=== PATIENT | male | born 1990 | race Caucasian/White ===

== ENCOUNTER 2016-06-23 12:49 | Emergency (ER) | payer OTHER ==
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
--- NOTE | 2016-06-24 02:34 | ED DISCHARGE INSTRUCTIONS ---
Patient: EDER MENDOZA General Instructions [facility] VisitID: [id number] [place] [address] 25y, M Registration Date/Time: 06/23/2016 Single contusion to the nose.No hematoma or skin abrasion. INSTRUCTIONS Warnings: GENERAL WARNINGS: Return or contact your physician immediately if your condition worsens or changes unexpectedly, if not improving as expected, or if other problems arise. Specifically return if problem worsens. Prescription Medications: Ultram 50 mg tablets: take 1-2 orally every 6 hours as needed for pain. Dispense twenty (20). No refills. Substitution is permissible. Follow-up: Follow up with your doctor in about one week as needed. Call for an appointment. Summary of care provided to patient. Understanding of the discharge instructions verbalized by patient. ADDITIONAL INFORMATION Nasal Contusion You have a contusion (bruising) of the nose. There appears to be no broken bones. A contusion may cause pain, swelling, stuffiness of the nose and sometimes bleeding. Home Care: 1) Apply an ice pack to the nose for 10 minutes every 2 hours during the first 24 hours to reduce pain and swelling. Continue this four times a day for the next two days. 2) You may use acetaminophen (Tylenol) or ibuprofen (Motrin, Advil) to control pain, unless another medicine was prescribed. [ NOTE : If you have chronic liver or kidney disease or ever had a stomach ulcer or GI bleeding, talk with your doctor before using these medicines.] Talk to your doctor if you are taking aspirin or blood thinners (coumadin). These will promote nose bleeding. Your dose may need to be adjusted. 3) Avoid blowing your nose for the first two days. Then, do so gently so you don't cause bleeding. 4) Avoid alcohol and hot liquids for the next two days. Alcohol or hot liquids in your mouth can dilate blood vessels in your nose and cause bleeding. Follow Up with your doctor or as advised by our staff. If your nose appears crooked , when the swelling goes down, contact an ENT doctor (nose specialist) for an appointment within seven days of injury. [NOTE: If X-rays were taken, they will be reviewed by a radiologist. You will be notified of any new findings that may affect your care.] Get Prompt Medical Attention if any of the following occur: Bleeding from the nose that is not controlled by pinching the nostrils together for 15 minutes Increasing facial swelling, pain or redness Fever of 100.4F (38C) Unable to breathe from both sides of the nose after swelling goes down Sinus pain Repeated vomiting Severe or worsening headache or dizziness Unusual drowsiness, or unable to awaken as usual Confusion or change in behavior or speech Convulsion (seizure) Tramadol Hydrochloride Oral tablet What is this medicine? TRAMADOL (TRA ma dole) is a pain reliever. It is used to treat moderate to severe pain in adults. How should I use this medicine? Take this medicine by mouth with a full glass of water. Follow the directions on the prescription label. If the medicine upsets your stomach, take it with food or milk. Do not take more medicine than you are told to take. Talk to your bulk receiver regarding the use of this medicine in children. Special care may be needed. What side effects may I notice from receiving this medicine? Side effects that you should report to your doctor or health animal care supervisor as soon as possible: allergic reactions like skin rash, itching or hives, swelling of the face, lips, or tongue breathing difficulties, wheezing confusion itching light headedness or fainting spells redness, blistering, peeling or loosening of the skin, including inside the mouth seizures Side effects that usually do not require medical attention (report to your doctor or health animal care supervisor if they continue or are bothersome): constipation dizziness drowsiness headache nausea, vomiting What may interact with this medicine? Do not take this medicine with any of the following medications: MAOIs like Carbex, Eldepryl, Marplan, Nardil, and Parnate This medicine may also interact with the following medications: alcohol or medicines that contain alcohol antihistamines benzodiazepines bupropion carbamazepine or oxcarbazepine clozapine cyclobenzaprine digoxin furazolidone linezolid medicines for depression, anxiety, or psychotic disturbances medicines for migraine headache like almotriptan, eletriptan, frovatriptan, naratriptan, rizatriptan, sumatriptan, zolmitriptan medicines for pain like pentazocine, buprenorphine, butorphanol, meperidine, nalbuphine, and propoxyphene medicines for sleep muscle relaxants naltrexone phenobarbital phenothiazines like perphenazine, thioridazine, chlorpromazine, mesoridazine, fluphenazine, prochlorperazine, promazine, and trifluoperazine procarbazine warfarin What if I miss a dose? If you miss a dose, take it as soon as you can. If it is almost time for your next dose, take only that dose. Do not take double or extra doses. Where should I keep my medicine? Keep out of the reach of children. Store at room temperature between 15 and 30 degrees C (59 and 86 degrees F). Keep container tightly closed. Throw away any unused medicine after the expiration date. What should I tell my health care provider before I take this medicine? They need to know if you have any of these conditions: brain tumor depression drug abuse or addiction head injury if you frequently drink alcohol containing drinks kidney disease or trouble passing urine liver disease lung disease, asthma, or breathing problems seizures or epilepsy suicidal thoughts, plans, or attempt; a previous suicide attempt by you or a family member an unusual or allergic reaction to tramadol, codeine, other medicines, foods, dyes, or preservatives or trying to get breast-feeding What should I watch for while using this medicine? Tell your doctor or health animal care supervisor if your pain does not go away, if it gets worse, or if you have new or a different type of pain. You may develop tolerance to the medicine. Tolerance means that you will need a higher dose of the medicine for pain relief. Tolerance is normal and is expected if you take this medicine for a long time. Do not suddenly stop taking your medicine because you may develop a severe reaction. Your body becomes used to the medicine. This does NOT mean you are addicted. Addiction is a behavior related to getting and using a drug for a non-medical reason. If you have pain, you have a medical reason to take pain medicine. Your doctor will tell you how much medicine to take. If your doctor wants you to stop the medicine, the dose will be slowly lowered over time to avoid any side effects. You may get drowsy or dizzy. Do not drive, use machinery, or do anything that needs mental alertness until you know how this medicine affects you. Do not stand or sit up quickly, especially if you are an older patient. This reduces the risk of dizzy or fainting spells. Alcohol can increase or decrease the effects of this medicine. Avoid alcoholic drinks. You may have constipation. Try to have a bowel movement at least every 2 to 3 days. If you do not have a bowel movement for 3 days, call your doctor or health animal care supervisor. Your mouth may get dry. Chewing sugarless gum or sucking hard candy, and drinking plenty of water may help. Contact your doctor if the problem does not go away or is severe. You have been given the following additional information: Nasal Contusion Tramadol Hydrochloride Oral tablet (Electronically signed by Sariah Judd A.R.N.P. 06/23/2016 16:43)
--- NOTE | 2016-06-24 02:34 | ED MED RECONCILIATION SUMMARY ---
Patient: EDER MENDOZA Medication Reconciliation Report [facility] VisitID: [id number] [address] [place] [address] 25y, M Registration Date/Time: 06/23/2016 Weight: 70.3 kg Height/Length: 68 in. BMI: 23.6 ALLERGIES: Penicillins The patient's Home Medications are listed below: THE FOLLOWING MEDICATIONS NEED TO BE RECONCILED: Tylenol 650 earlier today The source(s) of the original Home Medication information: Not obtained. The following Medications were given to the patient in the Emergency Department: None. The following Medications were prescribed to the patient: Ultram 50 mg tablets: take 1-2 orally every 6 hours as needed for pain. Dispense twenty (20). No refills. Substitution is permissible. -- Sariah Judd A.R.N.P.
--- NOTE | 2016-06-24 02:34 | ED DISCHARGE INSTRUCTIONS ---
Patient: EDER MENDOZA General Instructions [facility] VisitID: [id number] [place] [address] 25y, M Registration Date/Time: 06/23/2016 Single contusion to the nose.No hematoma or skin abrasion. INSTRUCTIONS Warnings: GENERAL WARNINGS: Return or contact your physician immediately if your condition worsens or changes unexpectedly, if not improving as expected, or if other problems arise. Specifically return if problem worsens. Prescription Medications: Ultram 50 mg tablets: take 1-2 orally every 6 hours as needed for pain. Dispense twenty (20). No refills. Substitution is permissible. Follow-up: Follow up with your doctor in about one week as needed. Call for an appointment. Summary of care provided to patient. Understanding of the discharge instructions verbalized by patient. ADDITIONAL INFORMATION Nasal Contusion You have a contusion (bruising) of the nose. There appears to be no broken bones. A contusion may cause pain, swelling, stuffiness of the nose and sometimes bleeding. Home Care: 1) Apply an ice pack to the nose for 10 minutes every 2 hours during the first 24 hours to reduce pain and swelling. Continue this four times a day for the next two days. 2) You may use acetaminophen (Tylenol) or ibuprofen (Motrin, Advil) to control pain, unless another medicine was prescribed. [ NOTE : If you have chronic liver or kidney disease or ever had a stomach ulcer or GI bleeding, talk with your doctor before using these medicines.] Talk to your doctor if you are taking aspirin or blood thinners (coumadin). These will promote nose bleeding. Your dose may need to be adjusted. 3) Avoid blowing your nose for the first two days. Then, do so gently so you don't cause bleeding. 4) Avoid alcohol and hot liquids for the next two days. Alcohol or hot liquids in your mouth can dilate blood vessels in your nose and cause bleeding. Follow Up with your doctor or as advised by our staff. If your nose appears crooked , when the swelling goes down, contact an ENT doctor (nose specialist) for an appointment within seven days of injury. [NOTE: If X-rays were taken, they will be reviewed by a radiologist. You will be notified of any new findings that may affect your care.] Get Prompt Medical Attention if any of the following occur: Bleeding from the nose that is not controlled by pinching the nostrils together for 15 minutes Increasing facial swelling, pain or redness Fever of 100.4F (38C) Unable to breathe from both sides of the nose after swelling goes down Sinus pain Repeated vomiting Severe or worsening headache or dizziness Unusual drowsiness, or unable to awaken as usual Confusion or change in behavior or speech Convulsion (seizure) Tramadol Hydrochloride Oral tablet What is this medicine? TRAMADOL (TRA ma dole) is a pain reliever. It is used to treat moderate to severe pain in adults. How should I use this medicine? Take this medicine by mouth with a full glass of water. Follow the directions on the prescription label. If the medicine upsets your stomach, take it with food or milk. Do not take more medicine than you are told to take. Talk to your competitive athlete regarding the use of this medicine in children. Special care may be needed. What side effects may I notice from receiving this medicine? Side effects that you should report to your doctor or health personal care service provider as soon as possible: allergic reactions like skin rash, itching or hives, swelling of the face, lips, or tongue breathing difficulties, wheezing confusion itching light headedness or fainting spells redness, blistering, peeling or loosening of the skin, including inside the mouth seizures Side effects that usually do not require medical attention (report to your doctor or health personal care service provider if they continue or are bothersome): constipation dizziness drowsiness headache nausea, vomiting What may interact with this medicine? Do not take this medicine with any of the following medications: MAOIs like Carbex, Eldepryl, Marplan, Nardil, and Parnate This medicine may also interact with the following medications: alcohol or medicines that contain alcohol antihistamines benzodiazepines bupropion carbamazepine or oxcarbazepine clozapine cyclobenzaprine digoxin furazolidone linezolid medicines for depression, anxiety, or psychotic disturbances medicines for migraine headache like almotriptan, eletriptan, frovatriptan, naratriptan, rizatriptan, sumatriptan, zolmitriptan medicines for pain like pentazocine, buprenorphine, butorphanol, meperidine, nalbuphine, and propoxyphene medicines for sleep muscle relaxants naltrexone phenobarbital phenothiazines like perphenazine, thioridazine, chlorpromazine, mesoridazine, fluphenazine, prochlorperazine, promazine, and trifluoperazine procarbazine warfarin What if I miss a dose? If you miss a dose, take it as soon as you can. If it is almost time for your next dose, take only that dose. Do not take double or extra doses. Where should I keep my medicine? Keep out of the reach of children. Store at room temperature between 15 and 30 degrees C (59 and 86 degrees F). Keep container tightly closed. Throw away any unused medicine after the expiration date. What should I tell my health care provider before I take this medicine? They need to know if you have any of these conditions: brain tumor depression drug abuse or addiction head injury if you frequently drink alcohol containing drinks kidney disease or trouble passing urine liver disease lung disease, asthma, or breathing problems seizures or epilepsy suicidal thoughts, plans, or attempt; a previous suicide attempt by you or a family member an unusual or allergic reaction to tramadol, codeine, other medicines, foods, dyes, or preservatives or trying to get breast-feeding What should I watch for while using this medicine? Tell your doctor or health personal care service provider if your pain does not go away, if it gets worse, or if you have new or a different type of pain. You may develop tolerance to the medicine. Tolerance means that you will need a higher dose of the medicine for pain relief. Tolerance is normal and is expected if you take this medicine for a long time. Do not suddenly stop taking your medicine because you may develop a severe reaction. Your body becomes used to the medicine. This does NOT mean you are addicted. Addiction is a behavior related to getting and using a drug for a non-medical reason. If you have pain, you have a medical reason to take pain medicine. Your doctor will tell you how much medicine to take. If your doctor wants you to stop the medicine, the dose will be slowly lowered over time to avoid any side effects. You may get drowsy or dizzy. Do not drive, use machinery, or do anything that needs mental alertness until you know how this medicine affects you. Do not stand or sit up quickly, especially if you are an older patient. This reduces the risk of dizzy or fainting spells. Alcohol can increase or decrease the effects of this medicine. Avoid alcoholic drinks. You may have constipation. Try to have a bowel movement at least every 2 to 3 days. If you do not have a bowel movement for 3 days, call your doctor or health personal care service provider. Your mouth may get dry. Chewing sugarless gum or sucking hard candy, and drinking plenty of water may help. Contact your doctor if the problem does not go away or is severe. You have been given the following additional information: Nasal Contusion Tramadol Hydrochloride Oral tablet (Electronically signed by Sariah Judd A.R.N.P. 06/23/2016 16:43)
--- NOTE | 2016-06-24 02:34 | ED MED RECONCILIATION SUMMARY ---
Patient: EDER MENDOZA Medication Reconciliation Report [facility] VisitID: [id number] [address] [place] [address] 25y, M Registration Date/Time: 06/23/2016 Weight: 70.3 kg Height/Length: 68 in. BMI: 23.6 ALLERGIES: Penicillins The patient's Home Medications are listed below: THE FOLLOWING MEDICATIONS NEED TO BE RECONCILED: Tylenol 650 earlier today The source(s) of the original Home Medication information: Not obtained. The following Medications were given to the patient in the Emergency Department: None. The following Medications were prescribed to the patient: Ultram 50 mg tablets: take 1-2 orally every 6 hours as needed for pain. Dispense twenty (20). No refills. Substitution is permissible. -- Sariah Judd A.R.N.P.
--- NOTE | 2016-06-24 02:34 | ED MAR SUMMARY ---
..... Medication Administration Record [facility] [address] [place], [place] [id number] Patient: EDER MENDOZA Visit ID: [id number] 25y, M Weight: 70.3 kg Height/Length: 68 in BMI: 23.6 ALLERGIES: Penicillins
--- NOTE | 2016-06-24 02:34 | ED MAR SUMMARY ---
..... Medication Administration Record [facility] [address] [place], [place] [id number] Patient: EDER MENDOZA Visit ID: [id number] 25y, M Weight: 70.3 kg Height/Length: 68 in BMI: 23.6 ALLERGIES: Penicillins
== END 2016-06-23 13:45 | disposition home or self-care (01) ==
LOC: ED SRH 12:49
DX: S00.33XA Contusion of nose, initial encounter (principal); Y04.0XXA Assault by unarmed brawl or fight, initial encounter; Y93.89 Activity, other specified; Y92.481 Parking lot as the place of occurrence of the external cause; Y99.9 Unspecified external cause status; F17.200 Nicotine dependence, unspecified, uncomplicated

== ENCOUNTER 2016-08-21 03:02 | Emergency (ER) | payer OTHER ==
--- NOTE | 2016-08-21 03:55 | ED CLINICAL REPORT ---
Clinical Report - Physicians/Mid Levels [facility] [address] [place] [address] 08/21/2016 3:02 Patient: EDER MENDOZA Time Seen: 03:08 Aug 21 2016. Historian- patient and police. CPT: ER phys charges level 4 plus (#543372). 2.6-7.5 cm simple scalp, neck,A (#[id number]). HISTORY OF PRESENT ILLNESS Location of injuries- left 4th finger and left thigh. Chief Complaint: DOG BITE. The injury occurred just prior to arrival. The animal reportedly appeared well. Occurred on a street. (police dog sent in after patient.). No skin rash, dizziness, fainting episodes or difficulty breathing. He has not had swelling or drainage. REVIEW OF SYSTEMS No swelling, numbness, difficulty breathing, weakness or tingling. No fever, joint pain or enlarged lymph nodes. He has had chest pain. All systems otherwise negative, except as recorded above. PAST HISTORY Substance Abuse. Asthma. --03:08 Tatiana Agudelo. ADDITIONAL SURGERIES: Rt leg. Medications: None. Allergies: Penicillin. SOCIAL HISTORY Heavy tobacco smoker (cigarette)- less than 1 pack per day. History of heavy drug use: heroin, methamphetamines, marijuana. No alcohol use. ADDITIONAL NOTES The nursing notes have been reviewed. PHYSICAL EXAM Vital Signs: 08/21/2016 03:11 BP: 127/87. HR: 110. RR: 20. O2 saturation: 100%. Temp: 97.6 F. Pain level now: 8/10. Appearance: Alert. Patient in mild distress. Head: Head normal on inspection and non-tender. Eyes: Eyes normal inspection. ENT: Nose normal on inspection. Mouth normal on inspection. Neck: Normal inspection. Neck non-tender. Painless ROM. CVS: Heart sounds normal. Pulses normal. Respiratory: Chest normal on inspection. Breath sounds normal. (mild left sided chest wall tenderness to,palpation.). Abdomen: Normal inspection. Soft and nontender. Back: Normal inspection. No tenderness. Skin: Skin warm. Extremities: Left ring finger: mild tenderness and swelling and multiple puncture wounds of the dorsal and volar aspect. Neurovascular intact distally. (2 punctures. No tendon or joint injury.). No limitation in movement. No subungual hematoma or amputation present. Left thigh: deep laceration located in the mid and lower thigh. SEE LACERATION PROCEDURE NOTE. Neurovascular intact distally. (2 lacerations from dog bite.). Neuro: Oriented X 3. No motor deficit. No sensory deficit. Reflexes normal. PROGRESS AND PROCEDURES Laceration Repair: Location: left thigh. Length: 3 cm. Complexity: simple (local anesthesia used and sutured). Wound depth/shape- subcutaneous and linear. Wound is clean. Contused tissue present. Distal neuro/vascular/tendon status normal. Local anesthesia provided using 2% lidocaine with epi. Prepped with Betadine and Hibiclens. Wound explored, cleansed, irrigated and examined to the base in bloodless field extensively with normal saline. Closure of skin: interrupted 4-0 (3 sutures). Post-procedure: he is stable and there are no complications. Bleeding is controlled and neuro-vascular status is intact distal to the wound. Dressing applied. Tetanus immunization given. Estimated blood loss: 2 mL. Laceration Repair #2: Location: left thigh. Length: 3 cm. Complexity: simple (local anesthesia used and sutured). Wound depth/shape- subcutaneous and linear. Wound is clean. Distal neuro/vascular/tendon status normal. Local anesthesia provided using 2% lidocaine with epi. Prepped with Betadine and Hibiclens. Wound explored, cleansed, irrigated and examined to the base in bloodless field extensively. Closure of skin: interrupted 4-0 (3 sutures). Post-procedure: he is stable and there are no complications. Bleeding is controlled and neuro-vascular status is intact distal to the wound. Dressing applied. Tetanus immunization given. Estimated blood loss: 2 mL. Course of Care: Bactrim 2 po Tdap IM Patient is stable. Symptoms better. Patient/family counseled. Disposition: Discharged. Condition: stable and improved. CLINICAL IMPRESSION Deep dog bite to the left ring finger and left thigh. No bite with injury to the left fingernails. Multiple superficial abrasions to the right forearm and right lower leg and left forearm and left lower leg. INSTRUCTIONS Protect wound and keep wound area clean. Change dressing twice daily. Keep wounds dry. You may wash wounds briefly, then dry. Apply neosporin twice daily. Sutures should be removed in ten days. You may walk and bear weight as tolerated. (You are medically cleared to book into [facility] Warnings: TETANUS: You were given a tetanus shot during your visit. Make a note for future reference. GENERAL WARNINGS: Return or contact your physician immediately if your condition worsens or changes unexpectedly, if not improving as expected, or if other problems arise. Prescription Medications: Bactrim DS 800 mg / 160 mg: Take 1 tablet orally every 12 hours for 7 days. Dispense fourteen (14). No refills. Substitution is permissible. OTC Medications: Acetaminophen (available over the counter): take according to label instructions. Follow-up: Follow up with your doctor in ten days. Call for an appointment. Understanding of the discharge instructions verbalized by patient. (Electronically signed by Titi Lennon MD 08/22/2016 0:15)
--- NOTE | 2016-08-21 03:55 | ED CLINICAL REPORT ---
Clinical Report - Physicians/Mid Levels [facility] [address] [place] [address] 08/21/2016 3:02 Patient: EDER MENDOZA Time Seen: 03:08 Aug 21 2016. Historian- patient and police. CPT: ER phys charges level 4 plus (#[id number]). 2.6-7.5 cm simple scalp, neck,A (#[id number]). HISTORY OF PRESENT ILLNESS Location of injuries- left 4th finger and left thigh. Chief Complaint: DOG BITE. The injury occurred just prior to arrival. The animal reportedly appeared well. Occurred on a street. (police dog sent in after patient.). No skin rash, dizziness, fainting episodes or difficulty breathing. He has not had swelling or drainage. REVIEW OF SYSTEMS No swelling, numbness, difficulty breathing, weakness or tingling. No fever, joint pain or enlarged lymph nodes. He has had chest pain. All systems otherwise negative, except as recorded above. PAST HISTORY Substance Abuse. Asthma. --03:08 Tatiana Agudelo. ADDITIONAL SURGERIES: Rt leg. Medications: None. Allergies: Penicillin. SOCIAL HISTORY Heavy tobacco smoker (cigarette)- less than 1 pack per day. History of heavy drug use: heroin, methamphetamines, marijuana. No alcohol use. ADDITIONAL NOTES The nursing notes have been reviewed. PHYSICAL EXAM Vital Signs: 08/21/2016 03:11 BP: 127/87. HR: 110. RR: 20. O2 saturation: 100%. Temp: 97.6 F. Pain level now: 8/10. Appearance: Alert. Patient in mild distress. Head: Head normal on inspection and non-tender. Eyes: Eyes normal inspection. ENT: Nose normal on inspection. Mouth normal on inspection. Neck: Normal inspection. Neck non-tender. Painless ROM. CVS: Heart sounds normal. Pulses normal. Respiratory: Chest normal on inspection. Breath sounds normal. (mild left sided chest wall tenderness to,palpation.). Abdomen: Normal inspection. Soft and nontender. Back: Normal inspection. No tenderness. Skin: Skin warm. Extremities: Left ring finger: mild tenderness and swelling and multiple puncture wounds of the dorsal and volar aspect. Neurovascular intact distally. (2 punctures. No tendon or joint injury.). No limitation in movement. No subungual hematoma or amputation present. Left thigh: deep laceration located in the mid and lower thigh. SEE LACERATION PROCEDURE NOTE. Neurovascular intact distally. (2 lacerations from dog bite.). Neuro: Oriented X 3. No motor deficit. No sensory deficit. Reflexes normal. PROGRESS AND PROCEDURES Laceration Repair: Location: left thigh. Length: 3 cm. Complexity: simple (local anesthesia used and sutured). Wound depth/shape- subcutaneous and linear. Wound is clean. Contused tissue present. Distal neuro/vascular/tendon status normal. Local anesthesia provided using 2% lidocaine with epi. Prepped with Betadine and Hibiclens. Wound explored, cleansed, irrigated and examined to the base in bloodless field extensively with normal saline. Closure of skin: interrupted 4-0 (3 sutures). Post-procedure: he is stable and there are no complications. Bleeding is controlled and neuro-vascular status is intact distal to the wound. Dressing applied. Tetanus immunization given. Estimated blood loss: 2 mL. Laceration Repair #2: Location: left thigh. Length: 3 cm. Complexity: simple (local anesthesia used and sutured). Wound depth/shape- subcutaneous and linear. Wound is clean. Distal neuro/vascular/tendon status normal. Local anesthesia provided using 2% lidocaine with epi. Prepped with Betadine and Hibiclens. Wound explored, cleansed, irrigated and examined to the base in bloodless field extensively. Closure of skin: interrupted 4-0 (3 sutures). Post-procedure: he is stable and there are no complications. Bleeding is controlled and neuro-vascular status is intact distal to the wound. Dressing applied. Tetanus immunization given. Estimated blood loss: 2 mL. Course of Care: Bactrim 2 po Tdap IM Patient is stable. Symptoms better. Patient/family counseled. Disposition: Discharged. Condition: stable and improved. CLINICAL IMPRESSION Deep dog bite to the left ring finger and left thigh. No bite with injury to the left fingernails. Multiple superficial abrasions to the right forearm and right lower leg and left forearm and left lower leg. INSTRUCTIONS Protect wound and keep wound area clean. Change dressing twice daily. Keep wounds dry. You may wash wounds briefly, then dry. Apply neosporin twice daily. Sutures should be removed in ten days. You may walk and bear weight as tolerated. (You are medically cleared to book into senior living[facility] Warnings: TETANUS: You were given a tetanus shot during your visit. Make a note for future reference. GENERAL WARNINGS: Return or contact your physician immediately if your condition worsens or changes unexpectedly, if not improving as expected, or if other problems arise. Prescription Medications: Bactrim DS 800 mg / 160 mg: Take 1 tablet orally every 12 hours for 7 days. Dispense fourteen (14). No refills. Substitution is permissible. OTC Medications: Acetaminophen (available over the counter): take according to label instructions. Follow-up: Follow up with your doctor in ten days. Call for an appointment. Understanding of the discharge instructions verbalized by patient. (Electronically signed by Titi Lennon MD 08/22/2016 0:15)
--- NOTE | 2016-08-21 03:55 | ED NURSING NOTES ---
Clinical Report - Nurses [facility] [address] [place] [address] 08/21/2016 3:02 [id number] TRI[facility] Triage time 03:Aug 21 2016. Acuity: LEVEL 3. Chief Complaint: DOG BITE. SEPSIS SCREEN: Sepsis Screen: negative. Negative (no infection suspected/documented). KATHERINE COMA SCORE: [place] Coma Scale: 15- eyes open spontaneously (4); best verbal response- oriented x 4 (5); best motor response- obeys commands (6). --03:11 Tatiana Agudelo 03:11 08/21/16. BP: 127/87. HR: 110. RR: 20. O2 saturation: 100%. Temp: 97.6 F (oral). Pain level now: 11/25. --03:14 Tatiana Agudelo. Weight: 70.3 kg stated. Height/Length: 68 inches Per Patient. BMI: 23.6. --03:08 Tatiana Agudelo. Medications None. --03:07 Tatiana Agudelo. Medication/allergy information source: the patient. --03:11 Tatiana Agudelo. Allergies Penicillin. --03:07 Tatiana Agudelo. History Arrived by EMS, and in police custody. Historian: police and patient. Unaccompanied. Location of injuries: left leg. Occurred on a street. (Evading police, Police canine unit dispatched). ( Patient was evading police arrest when a canine unit was dispatched. Patient was bit on his left medial calf and left hand.). SOCIAL HX: Light tobacco smoker (cigarette)- less than 1/2 a pack per day. History of drug use: heroin, methamphetamines, marijuana. Recently used drugs just prior to arrival. No alcohol use. No infectious disease exposure. ABUSE ASSESSMENT: No report of abuse. FALL RISK ASSESSMENT: Fall risk assessment completed. No fall risk identified. NUTRITIONAL RISK ASSESSMENT: The nutritional risk assessment revealed no deficiencies. FUNCTIONAL ASSESSMENT: Functional assessment: no impairments noted. LEARNING NEEDS ASSESSMENT: The learning needs assessment revealed no barriers. SKIN INTEGRITY ASSESSMENT: Skin integrity risk assessment completed. No skin integrity risk identified. --03:11 Tatiana Agudelo. PROBLEMS: Substance Abuse. Asthma. --03:08 Tatiana Agudelo. ADDITIONAL SURGERIES: Rt leg. --03:08 Tatiana Agudelo. Interventions ID band on patient. To treatment room. --03:11 Tatiana Agudelo. PHYSICAL ASSESSMENT 03:16 08/21/16. To room via stretcher. GENERAL / NEURO / PSYCH: Alert. Oriented X 4. Appears in pain. RESPIRATORY: Respirations not labored. CVS: Normal heart rate and rhythm. EXTREMITIES: Left leg: deep 4.0 cm laceration with controlled bleeding and multiple puncture wounds of the medial aspect of mid leg. SKIN: Skin is cool. ( abrasions generalized over the arms and legs). --03:16 Tatiana Agudelo. NURSING PROGRESS NOTES Monitoring of patient in place. Patient gowned. Warming measures: blanket applied. Reassurance given to the patient. Two patient identifiers checked. Call light placed in reach. Side rails up x 1. Bed placed in lowest position. Brakes of bed on. Patient ready for evaluation- chart flagged and ED physician notified. --03:17 Tatiana Agudelo Wound irrigated with 1000 mL using a syringe; patient tolerated procedure well. --03:17 Tatiana Agudelo 03:24 08/21/2016 TDAP IM 0.5 mL given. (Lot#: [id number], expiration date: 01/23/2018, Freelance Makeup Artist: sanofi pasteur). Given in the right deltoid. Allergies verified and confirmed 5 rights. Vaccine information statement provided to the patient. --03:24 Tatiana Agudelo 03:24 08/21/2016 Bactrim DS (Sulfamethoxazole-TMP DS) PO Tablets 2 tab given. Allergies verified and confirmed 5 rights. --03:24 Tatiana Agudelo 03:48 Breathalyzer 0.00. --03:48 McQuoid, Angelina, ER Tech1 Applied clean dressing consisting of Tegaderm and 4x4 gauze. --04:01 Tatiana Agudelo. DISPOSITION / DISCHARGE 04:01 08/21/16. Condition at departure: improved and stable. The goals identified in the patient's plan of care were met. No learning barriers present. Discharge instructions provided and reviewed with the patient (Police). Reviewed medication(s) side effects, precautions, dosing and course information (RX given to police). Reviewed wound care instructions. Patient verbalized understanding. Written instructions provided in [place]. Verbalized understanding (Police). ( Have wound evaluated in 10-14 days for suture removal. Seek medical treatment sooner if you see signs of infection. Keep wound clean and dry.). The patient was discharged by the physician. He was discharged to police department facility and accompanied by a police escort. He left the Emergency Department ambulatory and via police department vehicle. FALL RISK ASSESSMENT: Fall risk assessment completed. No fall risk identified. --04:01 Tatiana Agudelo 03:59 08/21/16. BP: deferred. HR: deferred. RR: deferred. O2 saturation: deferred. Temp: deferred. Pain level now deferred. --04:01 Tatiana Agudelo. Locked/Released at 08/21/2016 4:02 by Tatiana Agudelo,
--- NOTE | 2016-08-21 03:55 | ED ORDER SUMMARY ---
..... Patient: EDER MENDOZA OrderSheet [facility] VisitID: [id number] [address] [place] [address] 25y, M Registration Date/Time: 08/21/2016 ORDER SHEET Weight: 70.3 kg (stated) Allergies: Penicillin GENERAL ORDERS: Breathalyzer (03:23 08/21/2016 Brittani CORDERO) (Ack 3:26 HSoule) MEDICATION ORDERS: Tdap IM 0.5 mL (per protocol) (03:15 08/21/2016 Brittani CORDERO) (Ack 3:17 HSoule) (3:24 HSoule) Bactrim DS PO (Tablet 800-160 mg) 2 tabs (NOW) (03:16 08/21/2016 Brittani CORDERO) (Ack 3:17 HSoule) (3:24 HSoule) IV FLUIDS: ORDER SHEET NOTES: [Electronically signed by Tatiana Agudelo (04:02 08/21/2016)] [Electronically signed by Titi Lennon MD (00:15 08/22/2016)] [Electronically locked/signed by Tatiana Agudelo (04:02 08/21/2016)]
--- NOTE | 2016-08-21 03:55 | ED ORDER SUMMARY ---
..... Patient: EDER MENDOZA OrderSheet [facility] VisitID: [id number] [address] [place] [address] 25y, M Registration Date/Time: 08/21/2016 ORDER SHEET Weight: 70.3 kg (stated) Allergies: Penicillin GENERAL ORDERS: Breathalyzer (03:23 08/21/2016 Brittani CORDERO) (Ack 3:26 HSoule) MEDICATION ORDERS: Tdap IM 0.5 mL (per protocol) (03:15 08/21/2016 Brittani CORDERO) (Ack 3:17 HSoule) (3:24 HSoule) Bactrim DS PO (Tablet 800-160 mg) 2 tabs (NOW) (03:16 08/21/2016 Brittani CORDERO) (Ack 3:17 HSoule) (3:24 HSoule) IV FLUIDS: ORDER SHEET NOTES: [Electronically signed by Tatiana Agudelo (04:02 08/21/2016)] [Electronically signed by Titi Lennon MD (00:15 08/22/2016)] [Electronically locked/signed by Tatiana Agudelo (04:02 08/21/2016)]
--- NOTE | 2016-08-22 00:15 | ED DISCHARGE INSTRUCTIONS ---
Patient: EDER MENDOZA General Instructions [facility] VisitID: [id number] [place] [address] 25y, M Registration Date/Time: 08/21/2016 Deep dog bite to the left ring finger and left thigh. No bite with injury to the left fingernails. Multiple superficial abrasions to the right forearm and right lower leg and left forearm and left lower leg. INSTRUCTIONS Protect wound and keep wound area clean. Change dressing twice daily. Keep wounds dry. You may wash wounds briefly, then dry. Apply neosporin twice daily. Sutures should be removed in ten days. You may walk and bear weight as tolerated. (You are medically cleared to book into detention.). Warnings: TETANUS: You were given a tetanus shot during your visit. Make a note for future reference. GENERAL WARNINGS: Return or contact your physician immediately if your condition worsens or changes unexpectedly, if not improving as expected, or if other problems arise. Prescription Medications: Bactrim DS 800 mg / 160 mg: Take 1 tablet orally every 12 hours for 7 days. Dispense fourteen (14). No refills. Substitution is permissible. OTC Medications: Acetaminophen (available over the counter): take according to label instructions. Follow-up: Follow up with your doctor in ten days. Call for an appointment. Understanding of the discharge instructions verbalized by patient. ADDITIONAL INFORMATION Dog Bite If a dog has bitten you and the wound is deep enough to break the skin, an infection may occur. Therefore, you should watch for the warning signs listed below. The doctor may not close the wound completely. This is to allow fluid to drain in the event of an infection. Home Care Watch the wound for signs of infection listed below. In certain types of bites, antibiotics may be prescribed. Begin taking these as soon as possible, as directed until they are all gone. Rabies Prevention If you live in an area where rabies occurs in wild animals, the rabies virus can be passed to cats and dogs. An infected animal can pass the rabies virus to you during a bite. If ahealthy-looking pet dog has bitten you, it should be kept in a secure area for the next 10 days to watch for signs of illness. If the pet microbiology professor wont cooperate with you, contact the [facility] animal control department (or local law enforcement). If the animal becomes ill or dies [id number] days, contact your animal control department at once. The animal must be tested for rabies. If the animal stays healthy for the next 10 days, then there is no danger of rabies in the dog or you. Pets fully vaccinated against rabies (2 shots) are at very low risk for the infection. However, because human rabies is almost always fatal, any biting dog should be kept in confinement for 10 days as an extra precaution. If a stray dog bit you, contact the animal control department. They can provide information on capture, quarantine, and animal rabies testing. If you are unable to locate the animal that bit you in the next 2days, and if rabies exists in your region, you must be evaluated for the rabies vaccine series. Contact your doctor or return here promptly. All animal bites should be reported to the [facility] animal control department. If you were not given a form to fill out, you can report it yourself by calling. Follow Up with your doctor as advised. Most skin wounds heal within 10 days. However, an infection may occur even with proper treatment. Check your woundevery 6 hoursfor 2 days, then at least once a day for the next two days for the signs of infection listed below. Get Prompt Medical Attention if any of the following occur: Signs of infection: Spreading redness Increased pain or swelling Fever of 100.4F (38C) or higher, or as directed by your healthcare provider Colored fluid or pus draining from the wound Headache, confusion, strange behavior, or a seizure (signs of a rabies infection) Abrasions Abrasions are skin scrapes. Their treatment depends on how large and deep the abrasion is. Home Care: If you were given a bandage, change it once a day. If your bandage sticks to the wound, soak it in warm water until it loosens. Wash the area with soap and water to remove all the cream/ointment. You may do this in a sink, under a tub faucet or shower. Rinse off the soap and pat dry with a clean towel. Reapply cream/ointment according to your doctor's instructions. This will prevent infection and help prevent the bandage from sticking. Cover the wound with a fresh non-stick bandage (Telfa). Repeat steps 1 to 4 daily, or as directed by your doctor. If the bandage becomes wet or dirty, change it as soon as possible. You may use acetaminophen (Tylenol) or ibuprofen (Motrin, Advil) to control pain, unless another pain medicine was prescribed. [ NOTE : If you have chronic liver or kidney disease or ever had a stomach ulcer or GI bleeding, talk with your doctor before using these medicines.] Do not use ibuprofen in children under six months of age. Follow Up with your physician or this facility as directed by our staff. Most skin wounds heal within ten days. However, an infection may occur despite proper treatment. Therefore, look for the early signs of infection listed below. Get Prompt Medical Attention if any of the following occur: Increasing pain in the wound Increasing redness or swelling Pus coming from the wound Fever of 100.4F (38C) or higher, or as directed by your healthcare provider Laceration, Extremity (Sutures, [place], Or Tape) A laceration is a cut through the skin. This will usually require stitches (sutures) or amos if it is deep. Minor cuts may be treated with surgical tape closures. Home care The following guidelines will help you care for your laceration at home: Keep the wound clean and dry. If a bandage was applied and it becomes wet or dirty, replace it. Otherwise, leave it in place for the first 24 hours, then change it once a day or as directed. If stitches or amos were used, clean the wound daily: After removing the bandage, wash the area with soap and water. Use a wet cotton swab to loosen and remove any blood or crust that forms. After cleaning, keep the wound clean and dry. Talk with your doctor before applying any antibiotic ointment to the wound. Reapply the bandage. You may remove the bandage to shower as usual after the first 24 hours, but do not soak the area in water (no swimming) until the stitches or amos are removed. If surgical tape closures were used, keep the area clean and dry. If it becomes wet, blot it dry with a towel. The doctor may prescribe an antibiotic cream or ointment to prevent infection. Do not stop taking this medication until you have finished the prescribed course or the doctor tells you to stop. The doctor may also prescribe medications for pain. Follow the doctors instructions for taking these medications. If you have chronic liver or kidney disease or ever had a stomach ulcer or GI bleeding, talk with your doctor before using these medicines. Follow-up care Follow up with your health care provider. Most skin wounds heal within ten days. However, an infection may sometimes occur despite proper treatment. Therefore, check the wound daily for the signs of infection listed below. Stitches and amos should be removed within 714 days. If surgical tape closures were used, you may remove them after 10 days, if they have not fallen off by then. Notify your doctor if you notice persistent numbness or weakness in the injured extremity. (Note:A radiologist will review any X-rays that were taken. We will notify you of any new findings that may affect your care.) When to seek medical care Get prompt medical attention if any of these occur: Increasing pain in the wound Redness, swelling, or pus coming from the wound Fever of 100.4F (38C) or higher, or as directed by your health care provider If stitches or amos come apart or fall out before your next appointment If the surgical tape closures fall off within seven days, or the wound edges re-open Bleeding not controlled by direct pressure You have been given the following additional information: Dog Bite Abrasion Laceration, Extrem (Suture, Staple, Or Tape) You may walk and bear weight as tolerated. (Electronically signed by Titi Lennon MD 08/22/2016 0:15)
--- NOTE | 2016-08-22 00:16 | ED MAR SUMMARY ---
..... Medication Administration Record [facility] [address] [place] [address] Patient: EDER MENDOZA Visit ID: [id number] 25y, M Weight: 70.3 kg Height/Length: 68 in BMI: 23.6 ALLERGIES: Penicillin Given 03:08/21/2016 Tatiana Agudelo, Medication Administered: TDAP [IM], Dose: 0.5 mL IM. Medication Ordered: Tdap IM 0.5 mL (per protocol). Given 03:08/21/2016 Tatiana Agudelo, Medication Administered: BACTRIM DS [PO] (SULFAMETHOXAZOLE-TMP DS), Dose: 2 tab Tablets PO. Medication Ordered: Bactrim DS PO (Tablet 800-160 mg) 2 tabs (NOW).
--- NOTE | 2016-08-22 00:16 | ED MED RECONCILIATION SUMMARY ---
Patient: EDER MENDOZA Medication Reconciliation Report [facility] VisitID: [id number] [address] [place] [address] 25y, M Registration Date/Time: 08/21/2016 Weight: 70.3 kg Height/Length: 68 in. BMI: 23.6 ALLERGIES: Penicillin The patient's Home Medications are listed below: NONE. The source(s) of the original Home Medication information: patient The following Medications were given to the patient in the Emergency Department: TDAP [IM] IM 0.5 mL, administered: 08/21/2016 3:24:00 AM Bactrim DS [PO] PO 2 tab, administered: 08/21/2016 3:24:00 AM The following Medications were prescribed to the patient: Acetaminophen (available over the counter): take according to label instructions. -- Titi Lennon MD Bactrim DS 800 mg / 160 mg: Take 1 tablet orally every 12 hours for 7 days. Dispense fourteen (14). No refills. Substitution is permissible. -- Titi Lennon MD
--- NOTE | 2016-08-22 00:16 | ED MAR SUMMARY ---
..... Medication Administration Record [facility] [address] [place] [address] Patient: EDER MENDOZA Visit ID: [id number] 25y, M Weight: 70.3 kg Height/Length: 68 in BMI: 23.6 ALLERGIES: Penicillin Given 03:08/21/2016 Tatiana Agudelo, Medication Administered: TDAP [IM], Dose: 0.5 mL IM. Medication Ordered: Tdap IM 0.5 mL (per protocol). Given 03:08/21/2016 Tatiana Agudelo, Medication Administered: BACTRIM DS [PO] (SULFAMETHOXAZOLE-TMP DS), Dose: 2 tab Tablets PO. Medication Ordered: Bactrim DS PO (Tablet 800-160 mg) 2 tabs (NOW).
--- NOTE | 2016-08-22 00:16 | ED MED RECONCILIATION SUMMARY ---
Patient: EDER MENDOZA Medication Reconciliation Report [facility] VisitID: [id number] [address] [place] [address] 25y, M Registration Date/Time: 08/21/2016 Weight: 70.3 kg Height/Length: 68 in. BMI: 23.6 ALLERGIES: Penicillin The patient's Home Medications are listed below: NONE. The source(s) of the original Home Medication information: patient The following Medications were given to the patient in the Emergency Department: TDAP [IM] IM 0.5 mL, administered: 08/21/2016 3:24:00 AM Bactrim DS [PO] PO 2 tab, administered: 08/21/2016 3:24:00 AM The following Medications were prescribed to the patient: Acetaminophen (available over the counter): take according to label instructions. -- Titi Lennon MD Bactrim DS 800 mg / 160 mg: Take 1 tablet orally every 12 hours for 7 days. Dispense fourteen (14). No refills. Substitution is permissible. -- Titi Lennon MD
== END 2016-08-21 04:00 ==
LOC: ED SRH 03:02
DX: S71.152A Open bite, left thigh, initial encounter (principal); S61.255A Open bite of left ring finger without damage to nail, initial encounter; Y99.8 Other external cause status; S50.811A Abrasion of right forearm, initial encounter; S80.811A Abrasion, right lower leg, initial encounter; S50.812A Abrasion of left forearm, initial encounter; S80.812A Abrasion, left lower leg, initial encounter; W54.0XXA Bitten by dog, initial encounter; Y93.89 Activity, other specified; Y92.410 Unspecified street and highway as the place of occurrence of the external cause